=== PATIENT | female | born 1960 | race Caucasian/White ===

== ENCOUNTER 2017-06-29 12:28 | Emergency (ER) | payer OTHER, MEDICAID ==
[~2017-06-29] VITALS: Ht 170.2 cm; Wt 78.5 kg
[~2017-06-29 12:28] MED LIST: B-COMPLEX-VITA1 EACH PO; BUPROPION; BUSPAR; BUSPAR30 MG PO; BUSPIRONE; CALCIUM 600 +1 EAC8 PO; CALCIUM CITRAT200 MG PO; CLONAZEPAM 1 MG1 M1 PO; DESYREL; DESYREL50 MG PO; EFFEXOR; EFFEXOR XR150 MG PO; FISH OIL 1,0001 EAC5 PO; MEDROLDOSEPACK PO; NEXIUM PO; PROAIR HFA8.5 GM INH; TYLENOL EX-STR500 M2 PO; VITAMINS; WELLBUTRIN 100100 M1 NG; ZINC50 M1 PO
[2017-06-29] MEDS ORDERED: WELLBUTRIN SR100 MG PO (12:42)
[2017-06-29] MEDS ORDERED: TRAZODONE HCL100 MG PO (12:43)
[2017-06-29] MEDS ORDERED: ATIVAN0.5 MG PO (12:44)
[2017-06-29] MEDS ORDERED: ZANAFLEX4 MG PO (12:44)
[2017-06-29] MEDS ORDERED: NAPROSYN500 MG PO (14:53)
[2017-06-29 15:04] VITALS: BP 145/90
== END 2017-06-29 15:05 | disposition home or self-care (01) ==
LOC: M.ERS 12:28
DX: S70.02XA Contusion of left hip, initial encounter (principal); E11.9 Type 2 diabetes mellitus without complications; I10 Essential (primary) hypertension; F32.9 Major depressive disorder, single episode, unspecified; E78.00 Pure hypercholesterolemia, unspecified; G47.30 Sleep apnea, unspecified; F41.9 Anxiety disorder, unspecified; D84.9 Immunodeficiency, unspecified; Z88.0 Allergy status to penicillin; Z88.2 Allergy status to sulfonamides; W18.39XA Other fall on same level, initial encounter; Y93.89 Activity, other specified; Y92.89 Other specified places as the place of occurrence of the external cause; Y99.8 Other external cause status

== ENCOUNTER 2017-07-13 12:22 | Emergency (ER) | payer OTHER, MEDICAID ==
[~2017-07-13] VITALS: Ht 170.2 cm; Wt 79.4 kg
[~2017-07-13 12:22] MED LIST changes: +ATIVAN0.5 MG PO; +NAPROSYN500 MG PO; +TRAZODONE HCL100 MG PO; +WELLBUTRIN SR100 MG PO; +ZANAFLEX4 MG PO
[2017-07-13 12:47] LABS: URINE BILIRUBIN NEGATIVE (Negative); URINE BLOOD NEGATIVE (Negative); URINE CLARITY CLEAR; URINE COLOR YELLOW; URINE GLUCOSE-RANDOM NEGATIVE (Negative); URINE KETONES NEGATIVE (Negative); URINE NITRITE-REFLEX NEGATIVE (Negative); URINE PROTEIN TRACE (Negative); URINE SPECIFIC GRAVITY >= 1.030 (1.005-1.030); URINE UROBILINOGEN 0.2 E.U./dl (0.2-1.0)
[2017-07-13 12:49] LABS: ABSOLUTE BASOPHILS 0.1 thou/uL (0.0-0.2); ABSOLUTE EOSINOPHILS 0.2 thou/uL (0.0-0.7); ABSOLUTE LYMPHOCYTES 2.1 thou/uL (0.8-5.3); ABSOLUTE MONOCYTES 0.4 thou/uL (0.0-1.2); ABSOLUTE NEUTROPHILS 5.2 thou/uL (1.6-8.1); BASOPHILS 0.8 %; EOSINOPHILS 2.2 %; HEMATOCRIT 40.7 % (37.0-47.0); HEMOGLOBIN 13.6 gm/dL (12.0-15.0); LYMPHOCYTES 26.3 %; MCH 28.9 pg (26.0-34.0); MCHC 33.3 g/dL (28.0-37.0); MCV 86.8 fL (80.0-100.0); MONOCYTES 4.9 %; MPV 7.7 fl. (7.2-11.1); NUCLEATED RBCS 0 /100WBC; PLATELET COUNT* 388 thou/uL (150-400); POLYS 65.8 %; RBC 4.69 mil/uL (4.20-5.00); RDW-CV 13.2 % (10.5-14.5); WBC 7.9 thou/uL (4.0-11.0)
[2017-07-13 12:51] LABS: URINE LEUKOCYTES-REFLEX 2+ (Negative)
[2017-07-13 12:55] LABS: ANION GAP 10 mmol/L (7-16); BUN 24 mg/dL (7-18); CALCIUM 9.1 mg/dL (8.5-10.1); CHLORIDE 100 mmol/L (98-107); CO2 28 mmol/L (21-32); CREATININE 1.1 mg/dL (0.6-1.3); GLUCOSE 245 mg/dL (70-99); POTASSIUM 3.7 mmol/L (3.5-5.1); SODIUM 138 mmol/L (136-145)
[2017-07-13 12:55] LABS: AMP/METHAMP Negative (Negative); BARBITURATES Negative (Negative); BENZODIAZEPINES Negative (Negative); COCAINE Negative (Negative); METHADONE Negative (Negative); OPIATES Negative (Negative); PCP Negative (Negative); THC Negative (Negative)
[2017-07-13 12:56] LABS: SQUAMOUS 4-10 Moderate /LPF (0-3); URINE RBC 3-10 Few /HPF (0-2)
[2017-07-13 12:57] LABS: COARSE GRANULAR CASTS 4-10 Moderate /LPF (None Seen); CRYSTALS None Seen /LPF (None Seen); MUCUS None Seen strn/LPF (None Seen)
[2017-07-13 13:00] LABS: APTT 27.6 Seconds (25.0-31.3); PROTIME 10.1 Seconds (9.20-11.50)
[2017-07-13 13:08] LABS: ALBUMIN 3.7 g/dL (3.4-5.0); ALKALINE PHOSPHATASE 126 U/L (46-116); NT-PRO BRAIN NAT PEPTIDE 38 pg/mL (<300); SGOT 26 U/L (15-37); SGPT 58 U/L (30-65); TOTAL BILIRUBIN 0.2 mg/dL (<0.1-1.0); TOTAL PROTEIN 7.7 g/dL (6.4-8.2); TROPONIN-I LEVEL <0.06 ng/mL (<0.06)
[2017-07-13] MEDS ORDERED: MACROBID 100 M100 M1 PO (14:10)
[2017-07-13 15:08] VITALS: BP 126/84
--- NOTE | 2017-07-13 15:28 | EKG ---
[place] [address] ELECTROCARDIOGRAM REPORT Name: MATTY MILLSILA GREEN Room: [facility]#: [id number] Admission: 07/13/17 Attend Phys: Discharge: 07/13/17 Date of : 58 Report #: [id number] THIS REPORT FOR: //name// [facility] ED Test Date: 2017-07-13 Test Time: 13:05:38 Pat Name: KARRIE MILLS Department: Room: Gender: F Apiarist: WILLIE : 1960 Requested By: Eliseo Sanz Order Number: [id number] MD: Sixto Preciado Measurements Intervals [place] Rate: 96 P: 49 [place]: 149 QRS: 34 QRSD: 91 T: 16 QT: 367 QTc: 464 Interpretive Statements Sinus rhythm poor r wave progression Abnormal inferior Q waves Compared to ECG 08/03/2006 08:59:48 Inferior Q waves now present Electronically Signed On 07-13-2017 15:28:07 MARKETING UNDERWRITER by Sixto Preciado [email or web address] <ELECTRONICALLY SIGNED> By: Sixto Preciado MD, [facility] 07/13/17 1528 1305 [id number] Sixto Preciado MD, FACC /EPI
== END 2017-07-13 15:09 | disposition home or self-care (01) ==
LOC: M.ERS 12:22
PROVIDERS: Emergency Medicine Emergency Medical Services
DX: N39.0 Urinary tract infection, site not specified (principal); F07.81 Postconcussional syndrome; E11.9 Type 2 diabetes mellitus without complications; F41.9 Anxiety disorder, unspecified; F32.9 Major depressive disorder, single episode, unspecified; E78.00 Pure hypercholesterolemia, unspecified; Z88.0 Allergy status to penicillin; Z88.2 Allergy status to sulfonamides; Z88.1 Allergy status to other antibiotic agents; Z90.49 Acquired absence of other specified parts of digestive tract; Z79.4 Long term (current) use of insulin

== ENCOUNTER → 2017-07-14 | Outpatient (CLI) | payer OTHER, MEDICAID ==
[~2017-07-14] MED LIST changes: +MACROBID 100 M100 M1 PO
== END ==
LOC: M.MRI 06:57
DX: S72.002A Fracture of unspecified part of neck of left femur, initial encounter for closed fracture (principal); M25.452 Effusion, left hip; M79.652 Pain in left thigh; M51.37 Other intervertebral disc degeneration, lumbosacral region; X58.XXXA Exposure to other specified factors, initial encounter; Y93.89 Activity, other specified; Y92.89 Other specified places as the place of occurrence of the external cause; Y99.8 Other external cause status

== ENCOUNTER → 2017-11-23 | Outpatient (CLI) | payer OTHER | LOC: M.RAD 15:22 | DX: Z12.31 Encounter for screening mammogram for malignant neoplasm of breast (principal) ==

== ENCOUNTER → 2017-12-05 | Outpatient (CLI) | payer OTHER, MEDICAID | LOC: M.RAD 14:19 | DX: M81.0 Age-related osteoporosis without current pathological fracture (principal); M85.89 Other specified disorders of bone density and structure, multiple sites; E11.9 Type 2 diabetes mellitus without complications; E78.5 Hyperlipidemia, unspecified; I10 Essential (primary) hypertension; Z78.0 Asymptomatic menopausal state; Z88.0 Allergy status to penicillin ==

== ENCOUNTER → 2018-11-15 | Outpatient (CLI) | payer OTHER, MEDICAID | LOC: M.CT 11-02 08:56 | DX: K57.30 Diverticulosis of large intestine without perforation or abscess without bleeding (principal); I70.0 Atherosclerosis of aorta; M22.42 Chondromalacia patellae, left knee; E11.9 Type 2 diabetes mellitus without complications; M48.07 Spinal stenosis, lumbosacral region; M51.27 Other intervertebral disc displacement, lumbosacral region; Z98.890 Other specified postprocedural states ==

== ENCOUNTER 2019-04-15 17:50 | Inpatient (IN) | payer OTHER, MEDICAID ==
[~2019-04-15] VITALS: Ht 170.2 cm; Wt 84.4 kg
[2019-04-15 18:14] VITALS: BP 185/102
[2019-04-15] MEDS ORDERED: CYMBALTA20 MG (18:20)
[2019-04-15] MEDS ORDERED: METFORMIN HCL500 MG PO (18:20)
[2019-04-15 19:19] LABS: ABSOLUTE BASOPHILS 0.1 thou/uL (0.0-0.2); ABSOLUTE EOSINOPHILS 0.7 thou/uL (0.0-0.7); ABSOLUTE LYMPHOCYTES 1.7 thou/uL (0.8-5.3); ABSOLUTE NEUTROPHILS 8.5 thou/uL (1.6-8.1); BASOPHILS 0.6 %; HEMATOCRIT 39.2 % (37.0-47.0); HEMOGLOBIN 12.6 gm/dL (12.0-15.0); LYMPHOCYTES 14.3 %; MCHC 32.1 g/dL (28.0-37.0); MCV 80.9 fL (80.0-100.0); MONOCYTES 8.1 %; MPV 7.2 fl. (7.2-11.1); NUCLEATED RBCS 0 /100WBC; PLATELET COUNT* 368 thou/uL (150-400); RBC 4.84 mil/uL (4.20-5.00); RDW-CV 13.7 % (10.5-14.5); WBC 11.9 thou/uL (4.0-11.0)
[2019-04-15 19:29] LABS: CALCIUM 9.4 mg/dL (8.5-10.1); CREATININE 1.1 mg/dL (0.6-1.3); POTASSIUM 3.7 mmol/L (3.5-5.1)
[2019-04-15 19:30] LABS: APTT 27.6 Seconds (25.0-31.3); INR 0.9; PROTIME 9.7 Seconds (9.20-11.50)
[2019-04-15 19:46] LABS: ALBUMIN 3.7 g/dL (3.4-5.0); TOTAL BILIRUBIN 0.3 mg/dL (<0.1-1.0); TOTAL PROTEIN 7.3 g/dL (6.4-8.2)
[2019-04-15 21:55] VITALS: BP 160/88
[2019-04-15 22:00] VITALS: BP 140/82
--- NOTE | 2019-04-16 05:19 | NUR ---
PATIENT ARRIVED FROM ER VIA CART AND WAS ABLE TO AMBULATE TO BED. PT IS UP AD KADEN WITH STEADY GAIT. PT WITH SWOLLEN, RED AND WARM RT FACILA CHEEK. PT ON VANCOMYCIN FROM ER. PT IS NOW SALINE LOCKED. PT GIVEN MOTRIN 800MG PO X1 AND HYDROCODONE 5/325MG PO X1 FOR FACILA PAIN. PT ORIENTED TO ROOM/POLICIES AND VERBALIZES UNDERSTANDING. FREQUENTLY USED ITEMS AND CALL LIGHT WITHIN REACH. SIDERAILS UPX2. WILL CONTINUE TO MONITOR.
[2019-04-16 07:50] VITALS: BP 141/73
[2019-04-16] MEDS ORDERED: FLORASTOR250 MG PO (09:28)
[2019-04-16] MEDS ORDERED: CLINDAMYCIN HC300 MG PO (09:28)
[2019-04-16 11:24] VITALS: BP 141/73
--- NOTE | 2019-04-16 12:00 | NUR ---
PT A&OX4 VSS. FINAL DOSE OF IV ANTIBIOTICS ADMINISTERED PRIOR TO LEAVING UNIT. PT IV DC'D, NO REDNESS/SWELLING NOTED AT SITE. PT DRESSED INDEPENDENTLY NO ISSUES. PT STATES UNDERSTANDING OF DC INSTRUCTIONS AND RX PROVIDED UPON DISCHARGE FROM UNIT. PT TRANSPORTED FROM UNIT IN WC WITH NURSING STAFF. PT LEAVES WITH ALL PERSONAL BELONGINGS.
--- NOTE | 2019-04-17 07:57 | CON ---
[address] [address] CONSULTATION Name: KARRIE MILLS Room: [address] M.R.#: [id number] Admission: 04/15/19 Attend Phys: Ashley Hardy Discharge: 04/16/19 Date of : 58 Report #: [id number] THIS REPORT FOR: //name// CC: Sixto Herrera DATE OF SERVICE: 04/16/2019 ATTENDING PHYSICIAN: Dr. Herrera. REASON FOR EVALUATION: Right-sided facial cellulitis, likely a dental etiology. HISTORY OF PRESENT ILLNESS: Chart reviewed, patient examined. This is a 58-year-old with extensive medical history including diabetes mellitus, and also myalgic encephalomyelitis, was admitted subsequent to increasing pain associated with her left side of her face and her jaw in particular. She noted she had a dental procedure last week, placed a crown at that time and she has had increasing pain associated with it. In spite of analgesics, she was taking at home, it was unaffected. She denies significant amount of systemic illness. She has not had fevers or chills, has had some difficulty eating, although has resorted to chewing on the left side. No swallowing difficulties. Denies any pulmonary or gastrointestinal related complaints. On evaluation, she was noted to have a borderline elevated white count to 11.9, glucose of 183, her lactic acid was 0.8. CT of the facial bones, right lateral facial cellulitis along the level of the right mandible. No fluid collections identified. No bony destruction. She is placed empirically on vancomycin. ALLERGIES: LISTED TO PENICILLINS, SULFA, TRIMETHOPRIM. CURRENT MEDICATIONS: Include metformin, trazodone, clindamycin, naproxen, bupropion, lactobacillus, duloxetine, vancomycin, multivitamin, tizanidine. PAST MEDICAL HISTORY: Previous TMJ surgery in 1990, fibroids, diabetes mellitus type 2, non-insulin requiring; hypertension, history of depression, sleep apnea, myalgic encephalomyelitis, anxiety, gastric bypass, previous cholecystectomy, uvuloplasty, . SOCIAL HISTORY: Nonsmoker, no ethanol, no illicit drug use. FAMILY HISTORY: Noncontributory. REVIEW OF SYSTEMS: Otherwise, unremarkable 10-point review of systems with exception of the above. PHYSICAL EXAMINATION: GENERAL: She is alert, cooperative. She is in moderate [place] [address] CONSULTATION Name: KARRIE MILLS Room: [address]#: [id number] Admission: 04/15/19 Attend Phys: Ashley Hardy Discharge: 04/16/19 Date of : 58 Report #: [id number] the right-sided head and neck pain. She is lucid, appears to be generally well nourished. VITAL SIGNS: Temperature of 98, pulse 79, respirations 17, blood pressure of 140/82. SKIN: Warm, dry, no rashes. HEENT: Remarkable for the asymmetrical appearance. She has moderate to marked inflammatory changes noted about the right face centered around the temporomandibular joint, it is quite tender. There is no apparent fluctuance. There is no superficial bullous lesions. Intraorally she is quite tender. I do not appreciate any draining purulence from the site. The gum is moderately inflamed. NECK: Supple. LUNGS: Clear to auscultation. HEART: Regular rate and rhythm without murmur. ABDOMEN: Soft, nontender, nondistended. EXTREMITIES: No cyanosis. GENITOURINARY: Deferred. LABORATORY DATA: As described above. CBC: White count of 11.9, H and H 12.6 and 39.2, platelets of 368. PT of 97. INR of 0.9. Electrolytes: Sodium 139, potassium 3.7, chloride 102, bicarbonate is 26, anion gap of 11, BUN and creatinine 22 and 1.1, glucose of 183, albumin 3.7, total protein 7.3. LFTs unremarkable. Estimated GFR of 51. CT of the facial bones as noted above. ASSESSMENT: Dental-related infection. At this point, I do not think there is any drainable focus of infection. We will continue the clindamycin. We can pare down the therapy to see how she does clinically. It is not clear, but may be draining spontaneously. Utilize some warm moist heat to the site. We will monitor expectantly. At this point, there is no compromise of her airway or vision. <ELECTRONICALLY SIGNED> By: Thien Kelsey MD 04/17/19 [id number] Kelsey MD /nt
== END 2019-04-16 12:00 | disposition home or self-care (01) | DRG 603 ==
LOC: M.ERS 17:50 → M.TBA-ER 21:06 → M.3W 21:06
PROVIDERS: Nurse Practitioner Family; ADMIT Family Medicine
DX: L03.211 Cellulitis of face (principal); L02.01 Cutaneous abscess of face; K04.7 Periapical abscess without sinus; E11.9 Type 2 diabetes mellitus without complications; I10 Essential (primary) hypertension; F32.9 Major depressive disorder, single episode, unspecified; G47.30 Sleep apnea, unspecified; D72.829 Elevated white blood cell count, unspecified; G93.3 Postviral and related fatigue syndromes; F41.9 Anxiety disorder, unspecified; Z79.84 Long term (current) use of oral hypoglycemic drugs; Z98.84 Bariatric surgery status; Z90.49 Acquired absence of other specified parts of digestive tract; Z79.891 Long term (current) use of opiate analgesic; Z79.899 Other long term (current) drug therapy; Z88.0 Allergy status to penicillin; Z88.2 Allergy status to sulfonamides; Z88.8 Allergy status to other drugs, medicaments and biological substances

== ENCOUNTER → 2019-04-19 | Outpatient (CLI) | payer OTHER, MEDICAID ==
[~2019-04-19] MED LIST changes: +CLINDAMYCIN HC300 MG PO; +CYMBALTA20 MG; +FLORASTOR250 MG PO; +METFORMIN HCL500 MG PO
== END ==
LOC: M.CT 14:25
DX: R68.84 Jaw pain (principal); L03.211 Cellulitis of face

== ENCOUNTER → 2020-10-16 | Outpatient (CLI) | payer OTHER, MEDICAID | LOC: M.ULTRA 09:29 | PROVIDERS: ATTEND Internal Medicine | DX: N13.30 Unspecified hydronephrosis (principal); R10.9 Unspecified abdominal pain; R51.9 Headache, unspecified ==

== ENCOUNTER → 2020-10-24 | Outpatient (CLI) | payer OTHER, MEDICAID | LOC: M.CT 07:01 | PROVIDERS: ATTEND Internal Medicine | DX: N13.2 Hydronephrosis with renal and ureteral calculous obstruction (principal) ==

== ENCOUNTER → 2020-12-15 | Outpatient (CLI) | payer OTHER, MEDICAID ==
[2020-12-15 10:17] LABS: ABSOLUTE BASOPHILS 0.1 thou/uL (0.0-0.2); ABSOLUTE EOSINOPHILS 0.8 thou/uL (0.0-0.7); ABSOLUTE LYMPHOCYTES 2.3 thou/uL (0.8-5.3); ABSOLUTE MONOCYTES 0.7 thou/uL (0.0-1.2); ABSOLUTE NEUTROPHILS 5.5 thou/uL (1.6-8.1); BASOPHILS 0.8 %; EOSINOPHILS 8.9 %; HEMATOCRIT 44.9 % (37.0-47.0); HEMOGLOBIN 14.5 gm/dL (12.0-15.0); LYMPHOCYTES 24.7 %; MCH 27.7 pg (26.0-34.0); MCHC 32.3 g/dL (28.0-37.0); MCV 85.8 fL (80.0-100.0); MONOCYTES 7.1 %; MPV 7.6 fl. (7.2-11.1); NUCLEATED RBCS 0 /100WBC; PLATELET COUNT* 295 thou/uL (150-400); POLYS 58.5 %; RBC 5.24 mil/uL (4.20-5.00); RDW-CV 13.3 % (10.5-14.5); WBC 9.4 thou/uL (4.0-11.0)
[2020-12-15 10:31] LABS: CALCIUM 9.5 mg/dL (8.5-10.1); CREATININE 1.6 mg/dL (0.6-1.3)
[2020-12-15 10:42] LABS: ALBUMIN 3.8 g/dL (3.4-5.0); TOTAL BILIRUBIN 0.3 mg/dL (<0.1-1.0); TOTAL PROTEIN 7.2 g/dL (6.4-8.2)
[2020-12-16 02:06] LABS: GLYCOHEMOGLOBIN (HGB A1C) 9.2 % (4.8-5.6)
== END ==
LOC: M.RAD 09:57
PROVIDERS: ATTEND Internal Medicine
DX: R06.02 Shortness of breath (principal); E11.69 Type 2 diabetes mellitus with other specified complication; G47.33 Obstructive sleep apnea (adult) (pediatric); E66.9 Obesity, unspecified; R07.9 Chest pain, unspecified; Z79.4 Long term (current) use of insulin

== ENCOUNTER → 2021-04-16 | Outpatient (CLI) | payer OTHER, MEDICAID | LOC: M.RAD 13:20 | PROVIDERS: ATTEND Internal Medicine | DX: Z12.31 Encounter for screening mammogram for malignant neoplasm of breast (principal) ==